=== PATIENT | male | born 2000 | race Caucasian/White ===

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

== ENCOUNTER 2021-11-07 12:48 | Emergency (ER) | payer OTHER, SELFPAY ==
--- NOTE | ~2021-11-07 | XR_ITS ---
EXAMINATION: XR abdomen obstructive series DATE: 11/07/2021 13:56 INDICATION: Right upper quadrant abdominal pain TECHNIQUE: Frontal supine and upright views of the abdomen and AP view of the chest were obtained. COMPARISON: None. FINDINGS: Small to moderate amount of gas and stool scattered throughout the colon. No dilated gas-filled bowel to suggest obstruction. No pneumatosis or free intraperitoneal gas. Lungs are clear with no focal ai rspace opacities, pulmonary edema, pleural effusion or pneumothorax. Mediastinal silhouette is normal . Osseous excrescence at the left anterior inferior iliac spine with cortical and medullary continuit y which could represent an osteochondroma or old healed avulsion fracture. No acute osseous abnormali ty. IMPRESSION: 1. Normal bowel gas pattern. No free intraperitoneal gas or dilated gas-filled loops of bowel to sug gest obstruction. 2. No acute cardiopulmonary disease. Reviewed, dictated and finalized at location A. IMPRESSION: 1. Normal bowel gas pattern. No free intraperitoneal gas or dilated gas-filled loops of bowel to suggest obstruction. 2. No acute cardiopulmonary disease.
--- NOTE | 2021-11-07 13:22 | ED.ABDPAIN ---
HPI - Abdominal Pain General Chief Complaint: Abdominal Pain Stated Complaint: ABD PAIN/NAUSEA Time Seen by Provider: 11/07/21 13:30 Source: patient Mode of arrival: ambulatory Limitations: no limitations History of Present Illness HPI narrative: Rashard is a 21-year-old male patient presenting to the clinic today with complaints of right upper quadrant abdominal pain and nausea since 1030 last night. He reports that the pain is dull ache. Rates his pain a 5- 6 out of 10 currently. He denies any diarrhea or blood in the stools. Last bowel movement was 1 to 2 days ago per patient. Denies eating anything fatty or greasy prior to this episode. No history of any abdominal surgeries. Denies any fever or chills. Is passing gas Related Data Allergies Allergy/AdvReac Type Severity Reaction Status Date / Time No Known Allergies Allergy Verified 11/07/21 13:44 Review of Systems Review of Systems: Pertinent positives per HPI. Patient denies any fever, chills, rash, headache, visual changes, dizziness, cough, runny nose, sore throat, shortness of breath, chest pain, palpitations, diarrhea, constipation, or any urinary issues. PMFSH Social History Social History Smoking status: Never smoker Alcohol intake: never Substance use: never Substance use type: does not use Gender identity (if verbalized by the patient): Male Comments At the time of my signature, I reviewed and agree with the nursing past medical, surgical, social, and family history. There is no relevant family history pertinent to the patient complaint. Exam Narrative: General: Well-developed, well nourished, in no apparent distress. Head: Normocephalic, atraumatic. Cardio: Regular rate and rhythm, s1 and s2 normal, no murmur appreciated. Resp: Clear to auscultation bilaterally, no rhonchi, rales, wheezing or rubs. Abdomen: Soft, pliable, bowel sounds present in all quadrants, tender to palpation over the right upper quadrant/positive Yu sign, no organomegly, no CVAT tenderness. Course Course Emergency Course: Portions of this record may have been created with voice recognition software. Level of Care: Express Care Visit Vital Signs Vital signs: Vital Signs Temperature 36.9 C 09/12/22 13:24 Pulse Rate 68 11/07/21 13:24 Respiratory Rate 12 11/07/21 13:24 Blood Pressure 118/67 11/07/21 13:24 Pulse Oximetry 100 11/07/21 13:24 Oxygen Delivery Room Air 11/07/21 13:24 Temperature 36.9 C 11/07/21 13:24 Pulse Rate 68 11/07/21 13:24 Respiratory Rate 12 11/07/21 13:24 Blood Pressure 118/67 11/07/21 13:24 Pulse Oximetry 100 11/07/21 13:24 Oxygen Delivery Room Air 11/07/21 13:24 Vital signs reviewed MDM - Abdominal Pain MDM Narrative Medical decision making narrative: At the time of visit patient is resting comfortably on the exam table. X-ray was performed to rule out constipation. X-ray was negative for constipation, perforation, or obstruction. Offered to send the patient to the ED for further evaluation such as ultrasound and labs and patient declined at this time. Would like to follow-up with his PCP. Risk and benefits were reviewed with the patient and they voiced understanding that if his pain got worse to go to the emergency room. Supportive measures were discussed with the patient he voiced understanding of discharge instructions. I will send him in a prescription for some Zofran for the nausea Differential Diagnosis Differential diagnosis: Likely abdominal pain, acute appendicitis, constipation, gastroenteritis, pancreatitis, small bowel obstruction and other (Cholecystitis, gallstones) Imaging Data Radiologist's impression: ITS Impressions Abdomen X-Ray 11/07/21 13:58 IMPRESSION: 1. Normal bowel gas pattern. No free intraperitoneal gas or dilated gas-filled loops of bowel to suggest obstruction. 2. No acute cardiopulmonary diseas
[2021-11-07 13:24] VITALS: BP 118/67; PULSE 68; RESP 12; TEMP 36.9; O2SAT 100
== END 2021-11-07 14:20 | disposition home or self-care (01) ==
PROVIDERS: Emergency Provider Nurse Practitioner Family
DX: R10.11 Right upper quadrant pain (principal); R11.0 Nausea
CPT/HCPCS: 74019; 99213; G0463

== ENCOUNTER 2021-11-08 13:29 | Emergency (ER) | payer OTHER, SELFPAY ==
--- NOTE | ~2021-11-08 | CT_ITS ---
EXAMINATION: CT abdomen pelvis w con DATE: 11/08/2021 15:57 INDICATION: Right upper quadrant abdominal pain. Vomiting. TECHNIQUE: Computed tomography (CT) of the abdomen and pelvis was performed with 100 mL Omnipaque 350 intravenous contrast. Automated exposure control and iterative reconstruction technique were employe d. The dose-length product was 507.26 mGy-cm. COMPARISON: CT pelvis 12/21/2016 FINDINGS: The visualized portions of the lung bases demonstrate minimal atelectasis. No pleural effus ion. The heart size is normal. No pericardial effusion. The liver, gallbladder, spleen, pancreas, adr enal glands, and kidneys are normal. There are no dilated loops of bowel. The appendix is normal. The re are no pathologically enlarged lymph nodes. There is no free intraperitoneal fluid. The bones are unremarkable. IMPRESSION: 1. No etiology for the patient's symptoms. Reviewed, dictated and finalized at location A.
[2021-11-08 13:46] VITALS: BP 122/63; PULSE 78; RESP 16; TEMP 37; O2SAT 99
[2021-11-08 14:08] LABS: Basophils Percent Auto 0.5 % (0.2-1.2); Eosinophils Absolute Auto 0.2 K/mm3 (0-0.3); Eosinophils Percent Auto 2.8 % (0-4.4); Hematocrit 44.8 % (42.0-52.0); Hemoglobin 15.5 g/dL (14.0-18.0); Immature Granulocyte Absolute 0.04 K/mm3 (0.00-0.031); Immature Granulocyte Percent A 0.7 % (0-0.5); Lymphocytes Absolute Auto 1.71 K/mm3 (0.9-3.2); Lymphocytes Percent Auto 28.1 % (18.3-44.2); Mean Corpuscular HGB Conc 34.6 g/dl (32-36); Mean Corpuscular Hemoglobin 32.8 pg (26-34); Mean Corpuscular Volume 94.9 fl (80-100); Mean Platelet Volume 9.3 fl (7.4-10.4); Monocytes Absolute Auto 0.4 K/mm3 (0.1-0.6); Monocytes Percent Auto 7.1 % (2.6-8.5); Neutrophils Absolute Auto 3.7 K/mm3 (1.3-6.7); Neutrophils Percent Auto 60.8 % (45.5-73.1); Platelet Count Result 262 k/mm3 (150-375); Red Blood Count 4.72 M/mm3 (4.6-6.20); Red Cell Distribution Width 12.6 % (11.5-14.5); White Blood Count 6.1 K/mm3 (4.5-10.0)
[2021-11-08 14:20] LABS: Alanine Aminotransferase 25 U/L (6-50); Albumin Level 5.1 g/dL (3.5-5.1); Alkaline Phosphatase 74 U/L (38-126); Anion Gap 10 mmol/L (8-16); Aspartate Amino Transferase 28 U/L (17-59); Bilirubin,Total 1.9 mg/dL (0.2-1.3); Blood Urea Nitrogen 11 mg/dL (9-20); Calcium 9.6 mg/dL (8.4-10.2); Carbon Dioxide 27 mmol/L (22-30); Chloride 104 mmol/L (98-107); Estimated CRCL calculation 101 ml/min; Estimated Glomerular Filt Rate > 60; Glucose 92 mg/dL (65-110); Lipase 65 U/L (23-300); Potassium 4.1 mmol/L (3.4-5.0); Sodium 141 mmol/L (137-145)
[2021-11-08 14:47] LABS: Appearance Urine Clear (Clear); Bilirubin Urine Negative (Negative); Blood Urine Negative (Negative); Color Urine Yellow (Yellow); Glucose Urine UA Negative (Negative); Ketones Urine Negative (Negative); Leukocyte Esterase Ur Negative LEU/UL (Negative); Nitrate Urine Negative (Negative); Protein Urine Negative (Negative); Urobilinogen Urine 0.2 mg/dL (<2.0); pH Urine 7.5 (5.0-9.0)
[2021-11-08 14:52] LABS: Add Urine Microscopic? NO
--- NOTE | 2021-11-08 15:40 | ED.ABDPAIN ---
HPI - Abdominal Pain General Chief Complaint: Abdominal Pain Stated Complaint: ABD pain Time Seen by Provider: 11/08/21 15:37 History of Present Illness HPI narrative: 21-year-old male presents the emergency room for right upper quadrant pain is present for 3 days. Patient states he was nauseated and vomited once since the onset of symptoms. Denies any constipation or diarrhea. Patient states that following his emesis, his abdominal pain began to improve. Describes pain as a dull sensation that does not radiate. Denies dysuria. Denies any recent URI symptoms. Denies fever. Related Data Allergies Allergy/AdvReac Type Severity Reaction Status Date / Time No Known Allergies Allergy Verified 11/08/21 15:40 Review of Systems Review of Systems: CONSTITUTIONAL: Denies fever, chills, or sweats. EYES: Denies visual changes, redness, or discharge. ENT: Denies rhinorrhea, congestion, sore throat, or otalgia. CARDIOVASCULAR: Denies chest pain, palpitations, or edema. RESPIRATORY: Denies cough or dyspnea. GASTROINTESTINAL: Reports abdominal pain GENITOURINARY: Denies dysuria or hematuria. SKIN: Denies rash or itching. MUSCULOSKELETAL: Denies back pain, joint pain, or myalgia. NEUROLOGIC: Denies headache, numbness, dizziness, or weakness. PSYCHIATRIC: Denies anxiety or depression. [facility] Social History Social History Smoking status: Never smoker Alcohol intake: never Substance use: never Substance use type: does not use Gender identity (if verbalized by the patient): Male Exam Narrative: GENERAL: Well-appearing, well-nourished, no physical limitations, and in no acute distress. HEAD: Normocephalic, atraumatic. EYES: Conjunctivae normal, PERRLA and EOMI. CHEST: Clear to auscultation. No respiratory distress. No wheezes rales or rhonchi. No tenderness. HEART: Regular rate and rhythm. No murmur heard. Normal peripheral pulses. ABDOMEN: Soft, right upper quadrant tenderness, nondistended, normal active bowel sounds. BACK: No CVA tenderness EXTREMITIES: Normal range of motion. No edema. No clubbing or cyanosis SKIN: Warm, dry, no rash. No noted wounds NEURO: No focal deficits. Alert and oriented x3. MAEW. CN's II-XI intact bilaterally, normal gait PSYCH: Cooperative. Normal mood and affect. Course Vital Signs Vital signs: Vital Signs Temperature 37.0 C 11/08/21 13:46 Pulse Rate 78 11/08/21 13:46 Respiratory Rate 16 11/08/21 13:46 Blood Pressure 122/63 11/08/21 13:46 Pulse Oximetry 99 11/08/21 13:46 Oxygen Delivery Room Air 11/08/21 13:46 Temperature 37.0 C 11/08/21 13:46 Pulse Rate 78 11/08/21 15:46 Respiratory Rate 16 11/08/21 15:46 Blood Pressure 121/76 11/08/21 15:46 Pulse Oximetry 97 11/08/21 15:46 Oxygen Delivery Room Air 11/08/21 13:46 MDM - Abdominal Pain MDM Narrative Medical decision making narrative: 21-year-old male presented emergency room complaints of right lower quadrant right upper quadrant abdominal discomfort. No evidence of hepatobiliary disease. No signs of infection. CT scan shows no acute intra-abdominal abnormalities. Scalp films show moderate to large amount of stool retention. Patient likely experiencing constipation. Will encourage patient to use a spoonful of MiraLAX every 4-6 hours until he has a bowel movement. Lab Data Result diagrams: 11/08/21 13:59 11/08/21 13:59 Labs: Lab Results 11/08/21 11/08/21 11/08/21 Range/Units 13:59 13:59 13:59 WBC 6.1 (4.5-10.0) K/mm3 RBC 4.72 (4.6-6.20) M/mm3 Hgb 15.5 (14.0-18.0) g/dL Hct 44.8 (42.0-52.0) % MCV 94.9 (80-100) fl MCH 32.8 (26-34) pg MCHC 34.6 (32-36) g/dl RDW 12.6 (11.5-14.5) % Plt Count 262 (150-375) k/mm3 MPV 9.3 (7.4-10.4) fl Immature Gran % (Auto) 0.7 H (0-0.5) % Neut % (Auto) 60.8 (45.5-73.1) % Lymph % (Auto) 28.1 (18.3-44.2
[2021-11-08] MEDS: SODIUM CHLORIDE 0.9% IV 1,000 ML 999 ML IV CONT (15:44)
[2021-11-08 15:46] VITALS: BP 121/76; PULSE 78; RESP 16; O2SAT 97
[2021-11-08 16:35] VITALS: BP 128/81; PULSE 64; RESP 16; O2SAT 100
== END 2021-11-08 16:43 | disposition home or self-care (01) ==
PROVIDERS: Emergency Medicine; Emergency Provider Nurse Practitioner Family
DX: K59.00 Constipation, unspecified (principal)
CPT/HCPCS: 36415; 74177; 80053; 81003; 83690; 85025; 96360; 99284; J7030; Q9967